=== PATIENT | male | born 1945 | race Caucasian/White ===

== ENCOUNTER 2017-05-11 10:16 | Emergency (ER) | payer MEDICARE ==
[~2017-05-11] VITALS: Ht 170.2 cm; Wt 84.0 kg
[2017-05-11 10:39] VITALS: BP 131/63; PULSE 58; RESP 20; TEMP 98; O2SAT 98
--- NOTE | 2017-05-11 11:17 | RADRPT ---
EXAM DATE/TIME: 05/11/2017 10:58 [facility] COMPARISON: No previous studies available for comparison. INDICATIONS : Short of breath. MEDICAL HISTORY : None. SURGICAL HISTORY : spine surgeries ENCOUNTER: Initial ACUITY: 2 days PAIN SCORE: 0/10 LOCATION: mid back FINDINGS: PA and lateral views of the chest demonstrate the lungs to be symmetrically aerated without evidence of mass, infiltrate or effusion. The cardiomediastinal contours are unremarkable. Osseous structure s are intact. CONCLUSION: No acute disease. Darrin Bermudez MD FACR on May 11, 2017 at 11:15 Board Certified Radiologist. This report was verified electronically.
--- NOTE | 2017-05-11 11:22 | PD ---
HPI Chief Complaint: Fall Time Seen by Provider: 11:15 Travel History International Travel<30 days: No Contact w/Intl Traveler<30days: No Traveled to known affect area: No History of Present Illness HPI 71-year-old male presents to the emergency department with complaint of mid back pain that radiates around to his rib cage area after losing his balance on Thursday night and falling. He says he gets lightheaded when he stands up too fast and he stood up too fast and got lightheaded, lost his balance and fell. He denies hitting his head or loss of consciousness. Denies neck pain. Denies syncopal episode. Says the pain goes from his back to his front with deep breathing and movement. Reports difficulty breathing with movement only. When at rest he has no pain at all and denies difficulty breathing. Denies chest pain. Denies abdominal pain, nausea, vomiting, extremity pain, paresthesias, loss of sensation, decreased range of motion, decreased strength all Ixodes. Denies encopresis, incontinence, saddle anesthesias. Denies hemoptysis. Denies anticoagulant therapy. Reports taking baby aspirin daily. Denies pain at rest. Worse with movement, deep breathing, coughing, lying flat. Has taken Celebrex for symptom management. Symptoms are mild to moderate in severity. Allergies to penicillin. Primary care provider is Dr. Cherry. History of hypertension and hypercholesterolemia. Has no other medical complaints. No other modifying factors or associated signs or symptoms. PFSH Past Medical History Hx Anticoagulant Therapy: Yes (asa) Social History Tobacco Use: No Allergies-Medications (Allergen,Severity, Reaction): Coded Allergies: penicillin V (Verified Allergy, Unknown, 05/11/17) Reported Meds & Prescriptions Reported Meds & Active Scripts Active Robaxin (Methocarbamol) 500 Mg Tab 500 Mg PO QID PRN Review of Systems Except as stated in HPI: all other systems reviewed are Neg Physical Exam Narrative GENERAL: Well-nourished, well-developed male patient, in no acute distress; afebrile, nontoxic-appearing SKIN: Warm and dry. HEAD: Atraumatic. Normocephalic. EYES: Pupils equal and round. No scleral icterus. No injection or drainage. ENT: Mucosa pink and moist. Airway patent. NECK: Trachea midline. No midline tenderness on palpation of the cervical spine. Active rotation greater than 45 to the left and right. CARDIOVASCULAR: Bradycardic rate and rhythm; heartbeat high 50's. No murmur appreciated. RESPIRATORY: No accessory muscle use. Breath sounds clear and equal bilaterally. GASTROINTESTINAL: Abdomen soft, non-tender, nondistended. Positive bowel sounds. No hepato-splenomegaly, or palpable masses. No guarding. MUSCULOSKELETAL: Bilateral lower extremities supple and non-tense with 2+ pedal pulses and sensory intact; with full range of motion and 5/5 strength. 2 + DTRs bilaterally. Active dorsiflexion and extension of bilateral feet. Bilateral straight leg raise is negative for low back pain. Ambulatory in room with normal gait. Sitting up in bed at 90. No obvious deformities. No clubbing. No cyanosis. No edema. BACK: Midline point tenderness on palpation of the mid thoracic spine; no midline tenderness on palpation of the upper thoracic spine. No midline tenderness on palpation of the lumbar spine. No reproducible tenderness to the musculature of the entire back and to the lateral flank areas. no obvious deformities. NEUROLOGICAL: Awake and alert. Oriented 3. No obvious cranial nerve deficits. Motor grossly within normal limits. Normal speech. Moves all extremities. 5/5 strength to all extremities. Sensory intact. PSYCHIATRIC: Appropriate mood and affect; insight and judgment normal. Data Data Last Documented VS Vital Signs Date Time Temp Pulse Resp B/P (MAP) Pulse Ox O2 Delivery O2 Flow Rate FiO2 05/11/17 13:41 56 16 128/60 (82) 05/11/17 12:03 98 Room Air 05/11/17 10:39 98.0 Orders Orders Chest, Pa & Lat (05/11/17 ) Electrocardiogram (05/11/17 11:42) Basic Metabolic Panel (Bmp) (05/11/17 11:42) Complete Blood Count With Diff (05/11/17 11:42) Ecg Monitoring (05/11/17 11:42) Iv Access Insert/Monitor (05/11/17 11:42) Oximetry (05/11/17 11:42) Sodium Chloride 0.9% Flush (Ns Flush) (05/11/17 11:45) Orthostatic Vital Signs (05/11/17 11:42) Spine, Thoracic-Ap/Lat/Sw(3vw) (05/11/17 11:42) Acetamin-Hydrocod 325-5 Mg ([place] 5-325 (05/11/17 12:15) Ed Discharge Order (05/11/17 13:22) Resp Incentive Spirometry (05/11/17 ) Labs Laboratory Tests Test 05/11/17 11:55 White Blood Count 7.9 TH/MM3 Red Blood Count 4.54 MIL/MM3 Hemoglobin 14.7 GM/DL Hematocrit 41.7 % Mean Corpuscular Volume 91.8 FL Mean Corpuscular Hemoglobin 32.3 PG Mean Corpuscular Hemoglobin Concent 35.2 % Red Cell Distribution Width 13.8 % Platelet Count 209 TH/MM3 Mean Platelet Volume 7.9 FL Neutrophils (%) (Auto) 76.6 % Lymphocytes (%) (Auto) 9.3 % Monocytes (%) (Auto) 10.2 % Eosinophils (%) (Auto) 3.3 % Basophils (%) (Auto) 0.6 % Neutrophils # (Auto) 6.0 TH/MM3 Lymphocytes # (Auto) 0.7 TH/MM3 Monocytes # (Auto) 0.8 TH/MM3 Eosinophils # (Auto) 0.3 TH/MM3 Basophils # (Auto) 0.0 TH/MM3 CBC Comment DIFF FINAL Differential Comment Blood Urea Nitrogen 23 MG/DL Creatinine 0.68 MG/DL Random Glucose 98 MG/DL Calcium Level 8.9 MG/DL Sodium Level 136 MEQ/L Potassium Level 3.8 MEQ/L Chloride Level 101 MEQ/L Carbon Dioxide Level 25.9 MEQ/L Anion Gap 9 MEQ/L Estimat Glomerular Filtration Rate 114 ML/MIN [facility] Medical Decision Making Medical Screen Exam Complete: Yes Emergency Medical Condition: Yes Medical Record Reviewed: Yes Differential Diagnosis Near syncope, syncope, fall, thoracic back strain, muscle spasms Narrative Course 71-year-old male with midthoracic back pain that is reproducible on physical exam after a fall on Thursday evening. Patient reports getting lightheaded and losing his balance and falling. He denies syncopal episode. Denies chest pain or shortness of breath. He does report difficulty breathing with movement only. No shortness of breath while at rest. Patient is in no acute distress and his oxygen saturation is 98% on room air. No tachypnea or retractions. CBC , BMP, EKG, chest x-ray, thoracic spine x-ray, orthostatic vital signs, Lortab ordered. 1121: Chest x-ray concluded: No acute disease. 1157: EKG was sinus bradycardia; no ST elevation or depression; LVH; reviewed by Dr. Ferrari. 1322: CBC, BMP unremarkable. 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 Discussed radiology findings with the patient. Patient provided an incentive spirometer for home for deep breathing exercises. Patient discussed with Dr. Ferrari and he agrees with discharge. Robaxin prescribed for home. Instructed patient to follow up with primary care provider. Patient verbalizes understanding and agreement with treatment plan. Patient is medically cleared and stable for discharge. Discussed reasons to return to the emergency department. Patient agrees with treatment plan. The patients vital signs are stable and the patient is stable for outpatient follow- up and treatment. Patient discharged home, stable and in no acute distress. Diagnosis Primary Impression: Fall Qualified Codes: W19.XXXA - Unspecified fall, initial encounter Additional Impression: Acute thoracic back pain Qualified Codes: M54.6 - Pain in thoracic spine Referrals: Primary Care Physician Patient Instructions: Fall Prevention for Older Adults (ED), General Instructions, Muscle Spasm (ED), Thoracic Back Strain (ED) Additional Instructions: Tylenol as directed and as needed for pain Robaxin as prescribed and as needed for muscle spasms Heating pad and/or ice to affected area to reduce pain Avoid aggravating activities; increase activity as tolerated Follow-up with primary care provider Return to emergency department immediately with worsening of symptoms Med/Other Pt SpecificInfo: Prescription(s) given Scripts Methocarbamol (Robaxin) 500 Mg Tab 500 MG PO QID Y for MUSCLE SPASM, #30 TAB 0 Refills Prov: Radha Russo 05/11/17 Disposition: 01 DISCHARGE HOME Condition: Stable Radha Russo May 11, 2017 11:22
[2017-05-11] MEDS ORDERED: SODIUM CHLORIDE 0.9% FLUSH 10 ML FLUSH IVF PRN (11:45)
[2017-05-11 12:03] VITALS: BP_SYST 125; BP_SYST 147; BP_SYST 156; BP_DIAS 61; BP_DIAS 66; BP_DIAS 69; PULSE 54; RESP 16; O2SAT 98
[2017-05-11] MEDS ORDERED: ACETAMINOPHEN/HYDROcodone 325 MG/5 MG TAB PO ONE (12:15)
[2017-05-11 12:18] LABS: BASOPHIL % 0.6 % (0.0-2.0); EOSINOPHIL # 0.3 TH/MM3 (0-0.4); EOSINOPHIL % 3.3 % (0.0-4.0); HEMATOCRIT 41.7 % (39.0-51.0); HEMOGLOBIN 14.7 GM/DL (13.0-17.0); LYMPH % 9.3 % (9.0-44.0); LYMPHOCYTE # 0.7 TH/MM3 (1.0-4.8); MEAN CELL VOLUME 91.8 FL (80.0-100.0); MEAN CORPUSCULAR HEMOGLOBIN 32.3 PG (27.0-34.0); MEAN CORPUSCULAR HGB CONC 35.2 % (32.0-36.0); MEAN PLATELET VOLUME 7.9 FL (7.0-11.0); MONO % 10.2 % (0.0-8.0); MONOCYTE # 0.8 TH/MM3 (0-0.9); NEUT % 76.6 % (16.0-70.0); PLATELET COUNT 209 TH/MM3 (150-450); RED BLOOD COUNT 4.54 MIL/MM3 (4.50-5.90); RED CELL DISTRIBUTION WIDTH 13.8 % (11.6-17.2); WHITE BLOOD COUNT 7.9 TH/MM3 (4.0-11.0)
--- NOTE | 2017-05-11 12:43 | RADRPT ---
EXAM DATE/TIME: 05/11/2017 12:22 [facility] COMPARISON: No previous studies available for comparison. INDICATIONS : Thoracic pain due to fall. MEDICAL HISTORY : Hypertension. SURGICAL HISTORY : Lumbar laminectomy ENCOUNTER: Initial ACUITY: 1 day PAIN SCORE: 10/10 LOCATION: thoracic spine FINDINGS: Moderate to severe degenerative disc changes are noted in the upper thoracic spine at the T2-3, T3-4, T4-5 and T5-6 levels. There is significant disc space narrowing which is slightly asymmetric and has resulted in slight dextroscoliosis. There are no characteristic findings of an acute fracture. There are no destructive changes. Posterio r arch grossly intact. CONCLUSION: Advanced degenerative disc disease of the thoracic spine with mild asymmetric loss of height resultin g in mild scoliosis. No findings characteristic of an acute fracture or destructive changes. Vito Espinoza MD on May 11, 2017 at 12:36 Board Certified Radiologist. This report was verified electronically.
[2017-05-11 12:47] LABS: BICARBONATE 25.9 MEQ/L (21.0-32.0); CALCIUM 8.9 MG/DL (8.5-10.1); CREATININE 0.68 MG/DL (0.60-1.30)
[2017-05-11] MEDS ORDERED: ROBA500T PO (13:22)
[2017-05-11 13:41] VITALS: BP 128/60
--- NOTE | 2017-05-12 18:47 | EKG ---
Date Performed: 05/11/2017 Time Performed: 11:52:59 PTAGE: 71 years EKG: SINUS BRADYCARDIA BORDERLINE LEFT AXIS DEVIATION VOLTAGE CRITERIA FOR LVH ABNORMAL ECG NO PREVIOUS TRACING DOCTOR: Kenn Rios Interpretating Date/Time 05/12/2017 18:43:10
== END 2017-05-11 15:06 | disposition home or self-care (01) ==
LOC: NEPD 10:16
DX: M54.6 Pain in thoracic spine (principal); R42 Dizziness and giddiness; R94.31 Abnormal electrocardiogram [ECG] [EKG]; I10 Essential (primary) hypertension; W19.XXXA Unspecified fall, initial encounter; Z79.01 Long term (current) use of anticoagulants; Z88.0 Allergy status to penicillin
CPT/HCPCS: 71046; 72072; 80048; 85025; 93005; 99285